=== PATIENT | female | born 1940 | race Caucasian/White ===

== ENCOUNTER 2018-08-27 13:42 | Emergency (ER) | payer MEDICARE ==
[~2018-08-27] VITALS: Ht 162.6 cm; Wt 68.2 kg
[2018-08-27 15:05] VITALS: BP 162/97
[2018-08-27 15:23] LABS: BASOPHILS % (AUTO) 0.6 % (0-1); EOSINOPHILS # (AUTO) 0.2 X10'3 (0-0.9); EOSINOPHILS % (AUTO) 2.6 % (0-6); HEMATOCRIT 42.8 % (35.0-45.0); HEMOGLOBIN 14.4 g/dl (12.0-16.0); LYMPHOCYTES # (AUTO) 1.2 X10'3 (1.1-4.8); LYMPHOCYTES % (AUTO) 15.5 % (21-51); MEAN CORPUSCULAR HEMOGLOBIN 30.3 PG (27.0-31.0); MEAN CORPUSCULAR HGB CONC 33.6 g/dL (33.0-36.5); MEAN CORPUSCULAR VOLUME 90.2 FL (78-98); MEAN PLATELET VOLUME 7.9 FL (7.4-10.4); MONOCYTES # (AUTO) 0.9 X10'3 (0-0.9); MONOCYTES % (AUTO) 12.4 % (2-12); NEUTROPHILS # (AUTO) 5.3 X10'3 (1.8-7.7); NEUTROPHILS % (AUTO) 68.9 % (42-75); PLATELET COUNT 250 X10'3 (140-440); RED BLOOD COUNT 4.74 X10'6 (4.20-5.60); RED CELL DISTRIBUTION WIDTH 15.2 % (11.5-14.5); WHITE BLOOD COUNT 7.7 X10'3 (4.5-11.0)
[2018-08-27 15:32] LABS: D-DIMER 1.55 MG/L FEU (0-0.50)
[2018-08-27 15:48] LABS: ALANINE AMINOTRANSFERASE 31 U/L (12-78); ALBUMIN 3.7 G/DL (3.4-5.0); ALBUMIN/GLOBULIN RATIO 0.9 (1.1-1.5); ALKALINE PHOSPHATASE 114 IU/L (46-116); ANION GAP 7 (8-16); ASPARTATE AMINO TRANSFERASE 25 U/L (10-37); BILIRUBIN,TOTAL 0.4 MG/DL (0.1-1.0); BLOOD UREA NITROGEN 22 MG/DL (7-18); BUN/CREATININE RATIO 18.2 (6.6-38.0); CALCIUM 9.8 MG/DL (8.5-10.1); CHLORIDE 106 MMOL/L (99-107); CREATININE 1.21 MG/DL (0.40-0.90); GLUCOSE 100 MG/DL (70-104); POTASSIUM 4.3 MMOL/L (3.5-5.1); SODIUM 142 MMOL/L (135-145); TOTAL CARBON DIOXIDE 28.9 MMOL/L (24-32); TOTAL PROTEIN 7.6 G/DL (6.4-8.2); eGFR 43 ML/MIN
[2018-08-27 15:58] LABS: TROPONIN I < 0.04 NG/ML (0.0-0.05)
[2018-08-27] MEDS ORDERED: normal saline 1000ML IV soln IVB ONE (16:05)
[2018-08-27] MEDS ORDERED: iohexol 350MG/ML 100ml bottle IV ONE (16:12)
== END 2018-08-27 18:04 | disposition home or self-care (01) ==
LOC: ER 13:43
DX: M79.675 Pain in left toe(s) (principal); R60.0 Localized edema; R06.02 Shortness of breath; Z87.891 Personal history of nicotine dependence
CPT/HCPCS: 36415; 71045; 71275; 80053; 83880; 84484; 85025; 85379; 93005; 93925; 93971; 99284; J7030; Q9967

== ENCOUNTER 2023-01-26 18:15 | Inpatient (IN) | payer MEDICARE ==
[~2023-01-26] VITALS: Ht 162.6 cm; Wt 63.6 kg
[2023-01-26 18:54] LABS: BASOPHILS % (AUTO) 0.2 % (0-1); EOSINOPHILS # (AUTO) 0.1 X10'3 (0-0.9); EOSINOPHILS % (AUTO) 0.5 % (0-6); HEMATOCRIT 41.3 % (35.0-45.0); HEMOGLOBIN 13.6 g/dl (12.0-16.0); LYMPHOCYTES # (AUTO) 0.7 X10'3 (1.1-4.8); LYMPHOCYTES % (AUTO) 3.4 % (21-51); MEAN CORPUSCULAR HEMOGLOBIN 29.5 PG (27.0-31.0); MEAN CORPUSCULAR VOLUME 89.5 FL (78-98); MEAN PLATELET VOLUME 7.5 FL (7.4-10.4); MONOCYTES % (AUTO) 9.4 % (2-12); NEUTROPHILS # (AUTO) 18.1 X10'3 (1.8-7.7); NEUTROPHILS % (AUTO) 86.5 % (42-75); PLATELET COUNT 454 X10'3 (140-440); RED BLOOD COUNT 4.61 X10'6 (4.20-5.60); RED CELL DISTRIBUTION WIDTH 14.5 % (11.5-14.5); WHITE BLOOD COUNT 20.9 X10'3 (4.5-11.0)
[2023-01-26 19:11] LABS: ALANINE AMINOTRANSFERASE 29 U/L (12-78); ALBUMIN 2.3 G/DL (3.4-5.0); ALBUMIN/GLOBULIN RATIO 0.5 (1.1-1.5); ALKALINE PHOSPHATASE 124 IU/L (46-116); ANION GAP 6 (8-16); ASPARTATE AMINO TRANSFERASE 33 U/L (10-37); BILIRUBIN,TOTAL 0.5 MG/DL (0.1-1.0); BLOOD UREA NITROGEN 18 MG/DL (7-18); BUN/CREATININE RATIO 18.8 (10.0-20.0); CHLORIDE 101 MMOL/L (99-107); CREATININE 0.96 MG/DL (0.40-0.90); GLUCOSE 132 MG/DL (70-104); POTASSIUM 3.7 MMOL/L (3.5-5.1); SODIUM 137 MMOL/L (135-145); TOTAL CARBON DIOXIDE 30.2 MMOL/L (24-32); eCRCL 39 ML/MIN; eGFR 56 ML/MIN
[2023-01-26] MEDS ORDERED: albuterol 2.5 MG/3 ML nebule NEB ONE (19:15)
[2023-01-26] MEDS ORDERED: methylPREDNISolone sod succ 125mg/2ml vial IV ONE (19:15)
[2023-01-26 19:22] LABS: PRO BRAIN NATRIURETIC PEPTIDE 959 PG/ML (0-450)
[2023-01-26 20:58] VITALS: PULSE 109; RESP 18
[2023-01-26 21:07] VITALS: PULSE 119; RESP 18; O2SAT 100
[2023-01-26] MEDS ORDERED: levoFLOXACIN-Levaquin 750MG/D5 150 ML IV ONE (22:00)
[2023-01-26] MEDS ORDERED: ringers solution, lactated 1000ml IV soln IV ONE (22:00)
[2023-01-26] MEDS ORDERED: CHOL100046 PO (22:41)
[2023-01-26] MEDS ORDERED: OLME20TA23 PO (22:41)
[2023-01-26] MEDS ORDERED: BUDE10.2 PO (22:41)
[2023-01-26 22:54] LABS: APTT 22 SECONDS (22-32); PROTHROMBIN TIME 10.7 SECONDS (9.0-12.0)
[2023-01-26] MEDS ORDERED: potassium Cl 40MEQ/1/2NS 520ml 520 ML IV PRN (23:45)
[2023-01-26] MEDS ORDERED: ipratropium/albuterol 3ml nebule NEB PRN (23:45)
[2023-01-26] MEDS ORDERED: potassium Cl 20 mEq SR tablet PO PRN ×2 (23:45)
[2023-01-26] MEDS ORDERED: mag hydrox/Alum hydrox/simeth 30ml oral suspension PO PRN (23:45)
[2023-01-26] MEDS ORDERED: magnesium 4gm in 100ml NS 100 ML IV PRN (23:45)
[2023-01-26] MEDS ORDERED: ondansetron/PF 4mg/2ml inj IV PRN (23:45)
[2023-01-26] MEDS ORDERED: acetaminophen 325mg tablet PO PRN (23:45)
[2023-01-26] MEDS ORDERED: albuterol 2.5 MG/3 ML nebule NEB PRN (23:45)
--- NOTE | 2023-01-26 23:55 | NUR ---
iv infiltrated with approx 5ml of levaquin. dr price notified. iv removed, arm elevated. new iv started
[2023-01-27] VITALS (15 sets, daily range): BP systolic 108–130; BP diastolic 43–63; PULSE 95–122; RESP 12–20; TEMP 97.6–98; O2SAT 86–99
[2023-01-27] MEDS ORDERED: HYDR-3964 PO (01:19)
[2023-01-27] MEDS ORDERED: HYDROcodone/acetaminophen 5mg/325mg tablet PO PRN (04:10)
[2023-01-27 05:40] LABS: BASOPHILS # (AUTO) 0.1 X10'3 (0-0.2); BASOPHILS % (AUTO) 0.6 % (0-1); EOSINOPHILS % (AUTO) 0 % (0-6); HEMATOCRIT 38.5 % (35.0-45.0); HEMOGLOBIN 12.8 g/dl (12.0-16.0); LYMPHOCYTES # (AUTO) 0.4 X10'3 (1.1-4.8); MEAN CORPUSCULAR HEMOGLOBIN 29.8 PG (27.0-31.0); MEAN CORPUSCULAR HGB CONC 33.1 g/dL (33.0-36.5); MEAN CORPUSCULAR VOLUME 89.9 FL (78-98); MEAN PLATELET VOLUME 7.3 FL (7.4-10.4); MONOCYTES # (AUTO) 0.3 X10'3 (0-0.9); NEUTROPHILS # (AUTO) 14.2 X10'3 (1.8-7.7); NEUTROPHILS % (AUTO) 94.4 % (42-75); PLATELET COUNT 422 X10'3 (140-440); RED BLOOD COUNT 4.29 X10'6 (4.20-5.60); RED CELL DISTRIBUTION WIDTH 14.1 % (11.5-14.5)
[2023-01-27 06:15] LABS: ANION GAP 8 (8-16); CHLORIDE 102 MMOL/L (99-107); GLUCOSE 151 MG/DL (70-104); POTASSIUM 4.4 MMOL/L (3.5-5.1); SODIUM 141 MMOL/L (135-145); TOTAL CARBON DIOXIDE 31.4 MMOL/L (24-32)
[2023-01-27 06:16] LABS: ALANINE AMINOTRANSFERASE 29 U/L (12-78); ALBUMIN 2.1 G/DL (3.4-5.0); ALBUMIN/GLOBULIN RATIO 0.5 (1.1-1.5); ALKALINE PHOSPHATASE 107 IU/L (46-116); ASPARTATE AMINO TRANSFERASE 24 U/L (10-37); BILIRUBIN,TOTAL 0.4 MG/DL (0.1-1.0); BLOOD UREA NITROGEN 16 MG/DL (7-18); BUN/CREATININE RATIO 16.8 (10.0-20.0); CALCIUM 9.7 MG/DL (8.5-10.1); CREATININE 0.95 MG/DL (0.40-0.90); MAGNESIUM 2.3 MG/DL (1.5-2.4); TOTAL PROTEIN 6.6 G/DL (6.4-8.2); eCRCL 39 ML/MIN; eGFR 56 ML/MIN
--- NOTE | 2023-01-27 07:10 | NUR ---
pt. assisted to BSC, weak. voided without problems. Assisted back to bed resting quietly.
[2023-01-27] MEDS: K and/or MAG REPLACEMENT MC SCH ×2 (08:00→20:03)
[2023-01-27] MEDS ORDERED: docusate sod 100mg capsule PO SCH (08:00)
[2023-01-27] MEDS: levoFLOXACIN-Levaquin 500mg/D5 100 ML IV SCH (08:49)
[2023-01-27] MEDS: methylPREDNISolone sod succ 125mg/2ml vial IV SCH ×2 (08:52→20:50)
[2023-01-27] MEDS ORDERED: albuterol 2.5 MG/3 ML nebule NEB PRN (09:40)
[2023-01-27] MEDS ORDERED: ipratropium/albuterol 3ml nebule NEB SCH (09:40)
[2023-01-27] MEDS: ipratropium/albuterol 3ml nebule NEB SCH ×4 (10:54→22:47)
[2023-01-27 11:52] LABS: BILIRUBIN,URINE NEGATIVE (Neg); CLARITY,URINE SLIGHTLY CLOUDY (Clear); COLOR,URINE YELLOW (Yellow); GLUCOSE, URINE NEGATIVE (Neg); KETONES,URINE NEGATIVE (Neg); LEUKOCYTE ESTERASE ,URINE TRACE (Neg); NITRITES, URINE POSITIVE (Neg); OCCULT BLOOD,URINE NEGATIVE (Neg); PROTEIN,URINE TRACE mg/dl (Neg); UROBILINOGEN,URINE 0.2 E.U/dL (0.2-1.0)
[2023-01-27 12:18] LABS: UA COLLECTION TYPE VOIDED
[2023-01-27 12:21] LABS: BACTERIA,URINE 1+ /HPF (Neg); RBC,URINE NONE SEEN /HPF (0-2)
[2023-01-27 12:22] LABS: SQUAMOUS EPITHELIAL CELL,UR FEW /LPF (FEW)
--- NOTE | 2023-01-27 13:45 | NUR ---
PAGER ID: [phone] MESSAGE: [id number], Daniel Todd. Pts family is here and asked if she could have anything for anxiety? Ativan PO? She will stay is she can have something for anxiety. Sarah [facility] [id number]
--- NOTE | 2023-01-27 13:46 | NUR ---
PAGER ID: [phone] MESSAGE: [id number], Daniel Todd. Pt says she claustrophobic and doesn't want any meds for it. She wants to leave AMA. Also HR for 24B dropped to 39. Sarah [facility] [id number]
[2023-01-27] MEDS ORDERED: LORazepam 2 mg/ml vial IV PRN (13:55)
[2023-01-27] MEDS ORDERED: LORazepam 0.5 MG tablet PO PRN (13:55)
--- NOTE | 2023-01-27 18:21 | NUR ---
Problems reprioritized. Patient report given, questions answered & plan of care reviewed with Mackenzie PAUL, patient stable at transfer of care.
--- NOTE | 2023-01-27 18:25 | NUR ---
Patient in room PCU 3026. I have received report from elena waller and had the opportunity to ask questions and assume patient care.
[2023-01-27] MEDS: losartan 50mg tablet PO SCH (20:06)
[2023-01-27] MEDS: enoxaparin 40mg/0.4ml syringe SQ SCH (20:07)
[2023-01-28] VITALS (16 sets, daily range): BP systolic 98–128; BP diastolic 50–56; PULSE 58–112; RESP 14–20; TEMP 97.3–98.1; O2SAT 90–100
[2023-01-28] MEDS: ipratropium/albuterol 3ml nebule NEB SCH ×6 (03:03→23:00)
--- NOTE | 2023-01-28 06:10 | NUR ---
Problems reprioritized. Patient report given, questions answered & plan of care reviewed with alexei waller.
--- NOTE | 2023-01-28 06:48 | NUR ---
Patient in room PCU 3026. I have received report from portillo salvador and had the opportunity to ask questions and assume patient care.
[2023-01-28 07:40] LABS: BASOPHILS % (AUTO) 0.3 % (0-1); EOSINOPHILS % (AUTO) 0 % (0-6); HEMOGLOBIN 12.6 g/dl (12.0-16.0); LYMPHOCYTES # (AUTO) 0.6 X10'3 (1.1-4.8); LYMPHOCYTES % (AUTO) 4.3 % (21-51); MEAN CORPUSCULAR HEMOGLOBIN 30.1 PG (27.0-31.0); MEAN PLATELET VOLUME 7.8 FL (7.4-10.4); MONOCYTES # (AUTO) 0.8 X10'3 (0-0.9); MONOCYTES % (AUTO) 5.7 % (2-12); NEUTROPHILS # (AUTO) 11.9 X10'3 (1.8-7.7); NEUTROPHILS % (AUTO) 89.7 % (42-75); PLATELET COUNT 476 X10'3 (140-440); RED BLOOD COUNT 4.18 X10'6 (4.20-5.60); RED CELL DISTRIBUTION WIDTH 14.6 % (11.5-14.5); WHITE BLOOD COUNT 13.3 X10'3 (4.5-11.0)
[2023-01-28 07:41] LABS: ALANINE AMINOTRANSFERASE 28 U/L (12-78); ALBUMIN 2.1 G/DL (3.4-5.0); ALBUMIN/GLOBULIN RATIO 0.5 (1.1-1.5); ALKALINE PHOSPHATASE 92 IU/L (46-116); ANION GAP 3 (8-16); ASPARTATE AMINO TRANSFERASE 20 U/L (10-37); BILIRUBIN,TOTAL 0.2 MG/DL (0.1-1.0); BLOOD UREA NITROGEN 25 MG/DL (7-18); BUN/CREATININE RATIO 24.3 (10.0-20.0); CALCIUM 10.1 MG/DL (8.5-10.1); CHLORIDE 104 MMOL/L (99-107); CREATININE 1.03 MG/DL (0.40-0.90); GLUCOSE 158 MG/DL (70-104); MAGNESIUM 2.6 MG/DL (1.5-2.4); POTASSIUM 4.1 MMOL/L (3.5-5.1); SODIUM 140 MMOL/L (135-145); TOTAL PROTEIN 6.2 G/DL (6.4-8.2); eCRCL 36 ML/MIN; eGFR 51 ML/MIN
[2023-01-28] MEDS: levoFLOXACIN-Levaquin 500mg/D5 100 ML IV SCH (07:41)
[2023-01-28] MEDS: methylPREDNISolone sod succ 125mg/2ml vial IV SCH ×2 (07:41→20:22)
[2023-01-28] MEDS: K and/or MAG REPLACEMENT MC SCH ×2 (07:49→20:00)
--- NOTE | 2023-01-28 18:31 | NUR ---
Patient in room PCU 3026. I have received report from alexei waller and had the opportunity to ask questions and assume patient care.
--- NOTE | 2023-01-28 18:31 | NUR ---
Problems reprioritized. Patient report given, questions answered & plan of care reviewed with CHILO NICK.
--- NOTE | 2023-01-28 19:39 | NUR ---
Assisting Mackenzie PAUL with pt care, pt is a/ox3, resp even and unlabored, talking full sentences, gave lotion to pt "my skin is dry and itchy". skin p/w/d
[2023-01-28] MEDS: enoxaparin 40mg/0.4ml syringe SQ SCH (20:00)
[2023-01-28] MEDS: losartan 50mg tablet PO SCH (21:00)
--- NOTE | 2023-01-28 22:00 | NUR ---
pt very confused and agitated. pt refuses meds and care. attempted to offer ativan to help pt relax but pt refused and became more agitated.
[2023-01-29 02:00] VITALS: BP 117/69; PULSE 105; RESP 12; TEMP 97.7; O2SAT 96
[2023-01-29] MEDS: ipratropium/albuterol 3ml nebule NEB SCH ×3 (03:00→12:25)
[2023-01-29 06:00] VITALS: BP 148/52; PULSE 100; PULSE 113; RESP 17; RESP 20; TEMP 97.5; TEMP 98.2; O2SAT 92; O2SAT 97
--- NOTE | 2023-01-29 06:29 | NUR ---
Problems reprioritized. Patient report given, questions answered & plan of care reviewed with krystina waller.
--- NOTE | 2023-01-29 06:38 | NUR ---
I have received report from PARK Velásquez and had the opportunity to ask questions and assume patient care. No distress at this time.
[2023-01-29 07:12] VITALS: PULSE 102; RESP 22; O2SAT 92
[2023-01-29] MEDS: methylPREDNISolone sod succ 125mg/2ml vial IV SCH (07:19)
[2023-01-29] MEDS: levoFLOXACIN-Levaquin 500mg/D5 100 ML IV SCH (07:19)
[2023-01-29 07:20] VITALS: PULSE 100; RESP 20
[2023-01-29 07:56] LABS: BASOPHILS % (AUTO) 0.2 % (0-1); EOSINOPHILS % (AUTO) 0.2 % (0-6); HEMATOCRIT 39.3 % (35.0-45.0); HEMOGLOBIN 12.9 g/dl (12.0-16.0); LYMPHOCYTES # (AUTO) 0.8 X10'3 (1.1-4.8); LYMPHOCYTES % (AUTO) 5.7 % (21-51); MEAN CORPUSCULAR HEMOGLOBIN 29.7 PG (27.0-31.0); MEAN CORPUSCULAR HGB CONC 32.8 g/dL (33.0-36.5); MEAN CORPUSCULAR VOLUME 90.6 FL (78-98); MEAN PLATELET VOLUME 7.9 FL (7.4-10.4); MONOCYTES # (AUTO) 1.2 X10'3 (0-0.9); MONOCYTES % (AUTO) 8.5 % (2-12); NEUTROPHILS # (AUTO) 12.4 X10'3 (1.8-7.7); NEUTROPHILS % (AUTO) 85.4 % (42-75); PLATELET COUNT 530 X10'3 (140-440); RED BLOOD COUNT 4.33 X10'6 (4.20-5.60); RED CELL DISTRIBUTION WIDTH 14.8 % (11.5-14.5); WHITE BLOOD COUNT 14.5 X10'3 (4.5-11.0)
[2023-01-29 08:00] VITALS: RESP 16; O2SAT 99
[2023-01-29] MEDS: K and/or MAG REPLACEMENT MC SCH (08:00)
[2023-01-29 08:14] LABS: ALANINE AMINOTRANSFERASE 29 U/L (12-78); ALBUMIN 2.3 G/DL (3.4-5.0); ALBUMIN/GLOBULIN RATIO 0.6 (1.1-1.5); ALKALINE PHOSPHATASE 91 IU/L (46-116); ANION GAP 4 (8-16); ASPARTATE AMINO TRANSFERASE 30 U/L (10-37); BILIRUBIN,TOTAL 0.2 MG/DL (0.1-1.0); BLOOD UREA NITROGEN 35 MG/DL (7-18); BUN/CREATININE RATIO 31.8 (10.0-20.0); CALCIUM 10.1 MG/DL (8.5-10.1); CHLORIDE 106 MMOL/L (99-107); GLUCOSE 127 MG/DL (70-104); MAGNESIUM 2.5 MG/DL (1.5-2.4); POTASSIUM 4.4 MMOL/L (3.5-5.1); SODIUM 143 MMOL/L (135-145); TOTAL CARBON DIOXIDE 33.1 MMOL/L (24-32); TOTAL PROTEIN 6.1 G/DL (6.4-8.2); eCRCL 34 ML/MIN; eGFR 48 ML/MIN
[2023-01-29 11:00] VITALS: BP 145/57; PULSE 100; RESP 19; TEMP 97.7; O2SAT 93
[2023-01-29] MEDS ORDERED: PRED20TA PO (12:36)
[2023-01-29] MEDS ORDERED: LEVO-65 PO (12:36)
[2023-01-29] MEDS ORDERED: IPRA4AER IH (12:36)
--- NOTE | 2023-01-29 13:50 | NUR ---
Patient d/c'd, alert and oriented x4, RR 16, O2 99% on RA. Accompanied by son, drove her home. Patient had belongings, discharge instructions/ paperwork signed. Patients' IV d/c'd from t he rt arm, cannula intact. No distress at this time.
== END 2023-01-29 14:00 | disposition home health service (06) | DRG 871 ==
LOC: ER 18:16 → ED HOLD 23:52 → PCU 3S 01-27 13:07
PROVIDERS: ADMIT Family Medicine; ATTEND Internal Medicine
DX: A41.9 Sepsis, unspecified organism (principal); J18.9 Pneumonia, unspecified organism; J96.00 Acute respiratory failure, unspecified whether with hypoxia or hypercapnia; J44.0 Chronic obstructive pulmonary disease with (acute) lower respiratory infection; J44.1 Chronic obstructive pulmonary disease with (acute) exacerbation; Z66 Do not resuscitate; Z20.822 Contact with and (suspected) exposure to COVID-19; F41.9 Anxiety disorder, unspecified; Z79.51 Long term (current) use of inhaled steroids; Z87.891 Personal history of nicotine dependence; Z79.899 Other long term (current) drug therapy
CPT/HCPCS: 36415; 71045; 80053; 81001; 83605; 83735; 83880; 84145; 84484; 85025; 85610; 85730; 87040; 87088; 87811; 93005; 94640; 94760; 97116; 97161; 97530; 99285; A6212; G0378; J1650; J1956; J2930; J7120

== ENCOUNTER 2025-03-20 10:10 | Outpatient (CLI) | payer MEDICARE, MEDICAID ==
[~2025-03-20 10:10] MED LIST: BUDE10.2 PO; CHOL100046 PO; HYDR-3964 PO; OLME20TA69 PO
--- NOTE | 2025-03-20 11:20 | RADIOLOGY REPORT ---
CLINICAL HISTORY: UNSPECIFIED DEMENTIA, UNSPECIFIED SEVERITY, WITH AGITATION TECHNIQUE: Routine multiplanar imaging of the brain was performed without gadolinium contrast. COMPARISON: None FINDINGS: Evaluation is limited due to image degradation secondary to patient motion. There is no abnormal restricted diffusion to suggest acute infarction. There is mild brain volume loss. Scattered T2 hyperintense foci within the white matter both cerebral hemispheres is most compatible with a mild burden of nonspecific chronic small vessel ischemic change. There is no evidence for acute ischemic changes, mass, mass effect, or extra- axial fluid collection. There is no hydrocephalus or midline shift. The cerebral sulci and subarachnoid cisterns are not effaced. The imaged paranasal sinuses are clear. There has been bilateral cataract extraction. The midline structures, including the corpus callosum, are unremarkable. The intracranial flow voids are maintained. IMPRESSION: Limited exam with no acute intracranial abnormality seen. No evidence for acute infarct. Mild brain volume loss. Mild chronic small vessel ischemic change. Bilateral cataract extraction.
== END 2025-03-20 23:59 | disposition home or self-care (01) ==
LOC: MRI02 10:10
PROVIDERS: ATTEND Nurse Practitioner Family
DX: I67.89 Other cerebrovascular disease (principal); F03.911 Unspecified dementia, unspecified severity, with agitation; H26.8 Other specified cataract
CPT/HCPCS: 70551